=== PATIENT | male | born 1985 | race African-American/Black ===

== ENCOUNTER 2019-04-04 20:24 | Emergency (ER) | payer OTHER ==
[2019-04-04 21:13] LABS: Influenza A Molecular POSITIVE (Negative)
[2019-04-04] MEDS ORDERED: Oseltamivir CAP* 75 MG CAP PO ONE (23:31)
--- NOTE | 2019-04-04 23:33 | ED ---
Influenza-Like Illness - HPI Summary HPI Summary: 33-year-old male presents with fever for the past 2 days. He admits to sinus condition. He admits to all over muscle aches. He admits to occasional cough. denies any chest pain or SOB. No abdominal pain. Has no medical conditions. Has been taking Tylenol and ibuprofen for symptoms. - History of Current Complaint Chief Complaint: EDFever Time Seen by Provider: 04/04/19 23:16 - Allergy/Home Medications Allergies/Adverse Reactions: Allergies Allergy/AdvReac Type Severity Reaction Status Date / Time No Known Allergies Allergy Verified 04/04/19 20:29 PMH/Surg Hx/FS Hx/Imm Hx Endocrine/Hematology History: Denies: Hx Anticoagulant Therapy Respiratory History: Denies: Hx Asthma Infectious Disease History: No Infectious Disease History: Denies: Traveled Outside the [place] in Last 30 Days - Family History Known Family History: Positive: Non-Contributory - Social History Alcohol Use: Occasionally Substance Use Type: Reports: None Review of Systems Positive: Fever Positive: Nasal Discharge Negative: Cough Negative: Abdominal Pain Positive: Myalgia All Other Systems Reviewed And Are Negative: Yes Physical Exam Triage Information Reviewed: Yes Vital Signs On Initial Exam: Initial Vitals Temp Pulse Resp BP Pulse Ox 97 F 116 20 121/97 99 04/04/19 20:28 04/04/19 20:28 04/04/19 20:28 04/04/19 20:28 04/04/19 20:28 Vital Signs Reviewed: Yes Appearance: Positive: Well-Appearing Skin: Positive: Warm, Dry Head/Face: Positive: Normal Head/Face Inspection Eyes: Positive: Normal, EOMI, PURNIMA, Conjunctiva Clear ENT: Positive: Normal ENT inspection, Pharynx normal, TMs normal Respiratory/Lung Sounds: Positive: Clear to Auscultation, Breath Sounds Present Cardiovascular: Positive: Normal, RRR Abdomen Description: Positive: Nontender, Soft Bowel Sounds: Positive: Present Musculoskeletal: Positive: Normal Neurological: Positive: Normal Psychiatric: Positive: Normal Procedures - Sedation Patient Received Moderate/Deep Sedation with Procedure: No Diagnostics - Vital Signs Vital Signs Temp Pulse Resp BP Pulse Ox 04/04/19 20:28 97 F 116 20 121/97 99 - Laboratory Lab Results: Lab Results 04/04/19 Range/Units 20:45 Influenza A (Rapid) Positive A (Negative) Influenza B (Rapid) Not Reportable Lab Statement: Any lab studies that have been ordered have been reviewed, and results considered in the medical decision making process. Flu Symptom Course/Dx - Course Course Of Treatment: 33-year-old male presents with fever for the past 2 days. He admits to sinus condition. He admits to all over muscle aches. He admits to occasional cough. denies any chest pain or SOB. No abdominal pain. Has no medical conditions. Has been taking Tylenol and ibuprofen for symptoms. On exam appears ill but is nontoxic. Lungs clear to auscultation. Flu a is positive. Gave Tamiflu. Told to treat supportively. Patient understands and agrees plan. - Diagnoses Differential Diagnosis/HQI/PQRI: Positive: Bronchitis, Influenza, Pneumonia Provider Diagnoses: Influenza Discharge ED - Sign-Out/Discharge Documenting (check all that apply): Patient Departure - Discharge Plan Condition: Good Disposition: HOME Prescriptions: Oseltamivir CAP* [Tamiflu CAP*] 75 mg PO BID #9 cap Patient Education Materials: Influenza (ED) Forms: *Work Release Referrals: [facility] – [place] [facility] [Outside] Additional Instructions: Take Tamiflu twice for 5 days first dose given in ED Take Tylenol and ibuprofen for muscle aches and fever every 6 hours Saline rinse can be used multiple times a day for nasal congestion Drink plenty of fluids Follow up with primary within 5 days Return to ED if develop any new or worsening symptoms - Billing Disposition and Condition Condition: GOOD Disposition: Home
[2019-04-05 00:01] VITALS: BP 127/86
== END 2019-04-04 23:50 | disposition home or self-care (01) ==
LOC: ED 20:24
DX: J11.1 Influenza due to unidentified influenza virus with other respiratory manifestations (principal)
CPT/HCPCS: 99282; A9270-GY